=== PATIENT | female | born 1975 | race Caucasian/White ===

== ENCOUNTER → 2020-05-17 | Day surgery (SDC) | payer MEDICARE ==
[2020-05-12 14:37] VITALS: BMI 31.8
[~2020-05-17] MED LIST: LACTATED RINGERS 1,000 ML IV SCH; LIDOCAINE 1% (10MG/ML) FOR IV START INTRADERMA ONE; LIDOCAINE 1% INJ 10MG/ML (20 ML MDV) ONE; PROPOFOL 10 MG/ML 20 ML VIAL IV ONE
[2020-05-17 08:01] VITALS: TEMP 97.8
--- NOTE | 2020-05-17 08:19 | P.GSHP ---
History of Present Illness H&P Date: 05/17/20 Chief Complaint: Anemia Patient here today for upper and lower endoscopy. Patient with anemia. Denies rectal bleeding or melena. No abdominal pain. No weight loss. No family history of colon cancer. Past Medical History Past Medical History: Musculoskeletal Disorder Additional Past Medical History / Comment(s): muscular dystrophy, anemia, born with only one kidney(left) History of Any Multi-Drug Resistant Organisms: None Reported Additional Past Surgical History / Comment(s): paty eye surgery x 3 for astigmatism Past Anesthesia/Blood Transfusion Reactions: No Reported Reaction Past Psychological History: No Psychological Hx Reported Smoking Status: Never smoker Past Alcohol Use History: None Reported Past Drug Use History: None Reported - Past Family History Father Family Medical History: Cancer Additional Family Medical History / Comment(s): lung Medications and Allergies Home Medications Medication Instructions Recorded Confirmed Type Acetaminophen [Tylenol Extra 1,000 mg PO DIRECTED PRN 05/12/20 05/17/20 History Strength] Multivitamins, Thera [Multivitamin 1 tab PO DAILY 05/12/20 05/12/20 History (formulary)] Allergies Allergy/AdvReac Type Severity Reaction Status Date / Time aspirin Allergy Nausea & Verified 05/16/20 14:37 Vomiting & Diarrhea Surgical - Exam Vital Signs Temp Pulse Resp BP Pulse Ox 97.8 F 95 18 126/59 99 05/17/20 07:40 05/17/20 07:40 05/17/20 07:40 05/17/20 07:40 05/17/20 07:40 Physical exam: General: Well-developed, well-nourished HEENT: Normocephalic, sclerae nonicteric Abdomen: Nontender, nondistended Extremities: No edema Neuro: Alert and oriented Assessment and Plan (1) Anemia Narrative/Plan: Will proceed with EGD and colonoscopy. Current Visit: Yes Status: Acute Code(s): D64.9 - ANEMIA, UNSPECIFIED SNOMED Code(s): 065547301
--- NOTE | 2020-05-17 08:42 | P.PCN ---
Date of Procedure: 05/17/20 Procedure(s) Performed: PREOPERATIVE DIAGNOSIS: Anemia POSTOPERATIVE DIAGNOSIS: Minimal gastritis, rectal polyp PROCEDURE: 1. EGD with biopsy 2. Colonoscopy with snare polypectomy ANESTHESIA: MAC SURGEON: Avery Uriarte M.D. SPECIMENS: Antrum, polyp ENDOSCOPIC PROCEDURE: The patient was on the endoscopy table in the left decubitus position. The Olympus gastroscope was inserted into the oropharynx and passed under direct visualization to the region of the third portion of the duodenum. From that point the scope was slowly withdrawn inspecting all surfaces carefully. There were no neoplastic inflammatory or polypoid lesions throughout the duodenum. The pylorus was widely patent. The stomach was carefully inspected. There was minimal gastritis present. A biopsy of the antrum took place to rule out H. pylori. Retroflexion revealed a normal hiatus. The esophagus was then carefully examined. There were no neoplastic inflammatory or polypoid lesions throughout the visualized esophagus. The patient was kept on the endoscopy table in the left decubitus position. The Olympus colonoscope was inserted into the anus and passed under direct visualization to the base of the cecum. The appendiceal orifice was visualized. From that point the scope was slowly withdrawn inspecting all surfaces carefully. There were no neoplastic inflammatory or polypoid lesions throughout the cecum, ascending, transverse, descending, and sigmoid colon. In the rectum a small polyp approximately was noted and removed using the snare with cautery technique. The remainder of the rectum was normal. There was no visible diverticulosis. Digital rectal examination was normal. The patient was taken to the recovery room in stable condition per anesthesia guidelines. RECOMMENDATIONS: Await biopsy results. Continue workup of the patient's anemia.
[2020-05-17 08:48] VITALS: RESP 17
[2020-05-17 08:54] VITALS: BP 121/77; PULSE 103
== END ==
LOC: ORWHC2ENDO 07:12
PROVIDERS: ATTEND Surgery
DX: K29.50 Unspecified chronic gastritis without bleeding (principal); D12.8 Benign neoplasm of rectum; D50.9 Iron deficiency anemia, unspecified; G71.00 Muscular dystrophy, unspecified; K08.89 Other specified disorders of teeth and supporting structures; Q60.0 Renal agenesis, unilateral; Z98.890 Other specified postprocedural states; Z86.69 Personal history of other diseases of the nervous system and sense organs; Z88.6 Allergy status to analgesic agent; Z80.1 Family history of malignant neoplasm of trachea, bronchus and lung
CPT/HCPCS: 81025; 88305; 45385; 43239; J2001; J2704

== ENCOUNTER → 2020-07-21 | Outpatient (CLI) | payer MEDICARE ==
--- NOTE | 2020-07-23 12:01 | CT ---
EXAMINATION TYPE: CT Enterography DATE OF EXAM: 07/21/2020 COMPARISON: None HISTORY: 45-year-old female Abdominal pain and abnormal labs. TECHNIQUE: Contiguous axial scanning of the abdomen and pelvis performed without and with IV Contrast , patient injected with 100ml mL of Isovue 370. Negative oral contrast agent was also administered pe r CT enterography protocol. Postcontrast arterial and portal venous phase imaging was performed. Galilea nal/sagittal reconstructions performed. CT DLP: 1754.6 mGycm Automated exposure control for dose reduction was used. FINDINGS: The heart is normal size without pericardial effusion. Lung bases clear without pleural effusion. Tiny hiatal hernia. No focal liver lesion or biliary ductal dilatation. Portal venous system is patent. Gallbladder, adrenal glands, right kidney, and pancreas appear within normal limits. Spleen is borderline to mildly enlarged at 14.0 cm, sagittal series 10 image 55. A few right mid abdominal mesenteric lymph nodes are borderline enlarged up to 1.0 cm. Otherwise, no mesenteric or retroperitoneal lymphadenopathy. Left kidney is surgically absent. No dilated small bowel or free air. Normal appendix. Mild stool in the right hemicolon. Left side of the colon is relatively collapsed li miting assessment. Additional mild to moderate stool in the rectum. No pericolonic inflammatory givens e seen. There is mild mucosal hyperemia involving the last 10 cm of the terminal ileum with mucosal enhanceme nt on arterial phase imaging equivalent to that of the jejunum, refer to coronal series 12 images 42 through 44. No stricture, surrounding fluid, or abscess is identified. There is severe bulky fibroid enlargement of the uterus filling the pelvis side to side. The uterus m easures up to 13.5 cm x 10.1 cm x 9.8 cm. There is mass effect and edema formation of the endometrial stripe due to multiple large intramural and partially submucosal fibroids. Largest fibroid is primarily intramural along the anterior body measuring up to 7.8 cm but is mass ef fect onto the endometrium. Second largest is along the right uterine fundus measuring 7.0 cm. Multiple underlying fibroids are present. Multicystic appearance to the right kidney measuring 5.2 x 3.9 x 3.6 cm for a volume of 36.5 mL. Exte nsive follicular change/septations are present within. One cystic lesion measuring 1.6 cm within shou lders peripheral enhancement. Trace right cul-de-sac free fluid. Left ovary not clearly seen. Mild circumferential bladder wall thickening. Bones: No osseous destructive process. IMPRESSION: 1. THERE IS MILD NONSPECIFIC INFLAMMATION/ILEITIS OF THE DISTAL 10 CM OF THE TERMINAL ILEUM. NO STRIC TURE OR ABSCESS. 2. ENLARGED, MULTICYSTIC RIGHT OVARY WITH A VOLUME OF 36.5 ML. FEMALE PELVIC MRI CAN FURTHER EVALUATE FOR ANY POTENTIAL UNDERLYING CYSTIC OVARIAN LESION. 3. LARGE BULKY FIBROID UTERUS FILLING THE PELVIS SIDE TO SIDE. LARGEST FIBROIDS MEASURE UP TO 7.8 CM. LARGE INTRAMURAL AND SCATTERED SMALLER SUBMUCOSAL FIBROIDS DISTORT THE UNDERLYING ENDOMETRIUM FROM M ASS EFFECT. FEMALE PELVIC MRI CAN BE CONSIDERED FOR FIBROID MAPPING. CONSIDER SURGICAL EVALUATION. 4. TINY HIATAL HERNIA. MILD SPLENOMEGALY AT 14.0 CM. TRACE RIGHT CUL-DE-SAC FREE FLUID LIKELY PHYSIOL OGIC. LEFT KIDNEY SURGICALLY ABSENT. 5. MILD CIRCUMFERENTIAL BLADDER WALL THICKENING. CORRELATE TO EXCLUDE CYSTITIS.
== END | disposition home or self-care (01) ==
LOC: RADCTMAIN 14:03
PROVIDERS: ATTEND Internal Medicine Hematology & Oncology
DX: D25.1 Intramural leiomyoma of uterus (principal); D25.0 Submucous leiomyoma of uterus; K52.9 Noninfective gastroenteritis and colitis, unspecified; K44.9 Diaphragmatic hernia without obstruction or gangrene; N83.201 Unspecified ovarian cyst, right side; N32.89 Other specified disorders of bladder; R16.1 Splenomegaly, not elsewhere classified; Z88.6 Allergy status to analgesic agent; Z90.5 Acquired absence of kidney
CPT/HCPCS: 74178; Q9967

== ENCOUNTER → 2020-10-04 | Outpatient (CLI) | payer MEDICARE ==
[2020-10-04 11:48] LABS: African American GFR (CKD) >90 (>60 ml/min/1.73 sqM); Anion Gap 8 mmol/L; Blood Urea Nitrogen 18 mg/dL (7-17); Carbon Dioxide 26 mmol/L (22-30); Chloride 106 mmol/L (98-107); Non-African American GFR(CKD) 88 (>60 ml/min/1.73 sqM); Potassium 4.3 mmol/L (3.5-5.1); Sodium 140 mmol/L (137-145)
[2020-10-04 12:00] LABS: Anisocytosis Slight; Basophils % (A) 1 %; Eosinophils # (A) 0.1 k/uL (0-0.7); Eosinophils % (A) 1 %; HCT 42.3 % (34.0-46.0); HGB 13.3 gm/dL (11.4-16.0); Hypochromasia Moderate; Lymphocytes # (A) 1.1 k/uL (1.0-4.8); Lymphocytes % (A) 15 %; MCH 28.1 pg (25.0-35.0); MCHC 31.3 g/dL (31.0-37.0); MCV 89.8 fL (80.0-100.0); Mean Platelet Volume 8.5; Monocytes # (A) 0.4 k/uL (0-1.0); Monocytes % (A) 5 %; Neutrophils # (A) 5.9 k/uL (1.3-7.7); Neutrophils % (A) 78 %; Platelet Count 195 k/uL (150-450); RBC 4.71 m/uL (3.80-5.40); RDW 16.4 % (11.5-15.5); WBC 7.5 k/uL (3.8-10.6)
== END | disposition home or self-care (01) ==
LOC: LABWHC1 10:01
PROVIDERS: ATTEND Obstetrics & Gynecology Obstetrics
DX: Z01.818 Encounter for other preprocedural examination (principal); D25.9 Leiomyoma of uterus, unspecified; N92.0 Excessive and frequent menstruation with regular cycle; N85.2 Hypertrophy of uterus
CPT/HCPCS: 36415; 80051; 82565; 84520; 85025; 86850; 86900; 86901; 87086

== ENCOUNTER 2020-10-10 08:14 | Inpatient (IN) | payer MEDICARE, OTHER ==
[2020-10-06 16:25] VITALS: BMI 31.3
--- NOTE | 2020-10-10 08:39 | P.HPOB ---
History of Present Illness H&P Date: 10/10/20 Chief Complaint: menorrhagia, uterine fibroids, enlarged uterus this is a 45-year-old 0 that presents with known uterine fibroids. Patient had a Scans and subsequent ultrasound revealing an enlarged uterus with multiple fibroids 17 cm x 13 cm x 8 cm. Largest fibroid measuring 7.7 cm anterior nature. Patient is known to have heavy menstrual cycles regular heavy flow and clots. Patient is a known history of muscle dystrophy, with some noted developmental delays. Patient presented to the office with her mom for counseling. Patient has noted anemia secondary to heavy menstrual bleeding. Review of Systems Constitutional: Reports fatigue, Denies chills, Denies fever Ears, nose, mouth and throat: Denies headache Cardiovascular: Denies leg edema Respiratory: Denies dyspnea Gastrointestinal: Denies constipation, Denies diarrhea, Denies nausea, Denies vomiting Genitourinary: Reports menorrhagia Menstruation: Reports period heavy Past Medical History Past Medical History: Musculoskeletal Disorder Additional Past Medical History / Comment(s): muscular dystrophy, anemia, born with only one kidney(left) History of Any Multi-Drug Resistant Organisms: None Reported Additional Past Surgical History / Comment(s): paty eye surgery x 3 for astigmatism, Past Anesthesia/Blood Transfusion Reactions: No Reported Reaction Smoking Status: Never smoker - Past Family History Father Family Medical History: Cancer Additional Family Medical History / Comment(s): lung Medications and Allergies Home Medications Medication Instructions Recorded Confirmed Type Acetaminophen [Tylenol Extra 1,000 mg PO Q6HR PRN 05/12/20 10/07/20 History Strength] Multivitamins, Thera [Multivitamin 1 tab PO DAILY 05/12/20 10/06/20 History (formulary)] Ferrous Sulfate [Feosol] 325 mg PO DAILY 07/22/20 10/06/20 History Allergies Allergy/AdvReac Type Severity Reaction Status Date / Time aspirin Allergy Nausea & Verified 10/06/20 15:45 Vomiting & Diarrhea Exam Osteopathic Statement: *. No significant issues noted on an osteopathic structural exam other than those noted in the History and Physical/Consult. tardive physical exam is performed and state in general this a well-nourished well-developed non female in no acute distress, breathing is noted to be nonlabored, heart has a regular rate and rhythm, on abdominal exam the abdomen is tender with noted enlarged uterus just below the umbilicus on genitourinary exam external genitalia is normal for age no tenderness or implement inflammatory lesions are noted. The vagina has normal pink rugated the cervix is normal in appearance healthy with no lesions no adnexal masses are appreciated although difficult exam secondary to uterine size Assessment and Plan (1) Uterine fibroid Current Visit: Yes Status: Acute Code(s): D25.9 - LEIOMYOMA OF UTERUS, UNSPECIFIED SNOMED Code(s): 76284659 (2) Enlarged uterus Current Visit: Yes Status: Acute Code(s): N85.2 - HYPERTROPHY OF UTERUS SNOMED Code(s): 258901125 (3) Menorrhagia Current Visit: Yes Status: Acute Code(s): N92.0 - EXCESSIVE AND FREQUENT MENSTRUATION WITH REGULAR CYCLE SNOMED Code(s): 876725277 (4) Anemia Current Visit: No Status: Acute Code(s): D64.9 - ANEMIA, UNSPECIFIED SNOMED Code(s): 793628233 Plan: this 45-year-old 0 with known enlarged uterus, uterine fibroids, presents for planned total abdominal hysterectomy with possible diagnostic cystoscopy. Patient has been counseled on surgery and questions have been answered. Risks are reviewed including but not limited to infection, bleeding, damage to bladder, bowel, ureteric injury given the enlarged nature of the uterus. Patient states understanding and wishes to proceed.
[2020-10-10] MEDS ORDERED: ACETAMINOPHEN IV (For NPO) 1,000 MG in EMPTY BAG 1 BAG IVPB STA (08:40)
[2020-10-10] MEDS ORDERED: ONDANSETRON 4 MG/2 ML VIAL IVP PRN (08:40)
[2020-10-10] MEDS ORDERED: Acetaminophen-Codeine 300-30mg TAB PO PRN (08:40)
[2020-10-10] MEDS ORDERED: SIMETHICONE 80 MG CHEWABLE PO PRN (08:40)
[2020-10-10] MEDS ORDERED: LACTATED RINGERS 1,000 ML IV ONE (09:28)
[2020-10-10] MEDS ORDERED: LIDOCAINE 1% (10MG/ML) FOR IV START SQ ONE (09:29)
[2020-10-10] MEDS ORDERED: DEXAMETHASONE SOD PHOSPHATE 4 MG/ML 1 ML VIAL IV ONE (09:38)
[2020-10-10] MEDS ORDERED: ONDANSETRON 4 MG/2 ML VIAL IVP ONE (09:38)
[2020-10-10] MEDS ORDERED: HYDROmorphone (PF) 1 MG/ML ONE (10:34)
[2020-10-10] MEDS ORDERED: NEOSTIGMINE 1 MG/ML 10 ML VIAL ONE (10:34)
[2020-10-10] MEDS ORDERED: MIDAZOLAM 2 MG/2 ML VIAL ONE (10:34)
[2020-10-10] MEDS ORDERED: PROPOFOL 10 MG/ML 20 ML VIAL IV ONE (10:34)
[2020-10-10] MEDS ORDERED: ROCURONIUM 10 MG/ML (10 ML VIAL) IV ONE (10:34)
[2020-10-10] MEDS ORDERED: fentaNYL (PF) 50 MCG/ML 2 ML AMP ONE (10:34)
[2020-10-10] MEDS ORDERED: GLYCOPYRROLATE 0.2 MG/ML 2 ML VIAL ONE (10:34)
[2020-10-10] MEDS ORDERED: LIDOCAINE 1% INJ 10MG/ML (20 ML MDV) ONE (10:34)
[2020-10-10] MEDS ORDERED: diphenhydrAMINE 25 MG CAP PO PRN (13:29)
[2020-10-10] MEDS ORDERED: METOCLOPRAMIDE 5 MG/ML 2 ML VIAL IVP PRN (13:29)
[2020-10-10] MEDS ORDERED: NALOXONE 0.4 MG/ML 1 ML VIAL IV PRN (13:29)
[2020-10-10] MEDS ORDERED: diphenhydrAMINE 50 MG/ML 1 ML VIAL IVP PRN (13:29)
--- NOTE | 2020-10-10 13:29 | P.OP ---
Date of Procedure: 10/10/20 Preoperative Diagnosis: uterine fibroids, enlarged uterus, heavy menstrual bleeding, anemia Postoperative Diagnosis: same Procedure(s) Performed: total abdominal hysterectomy with bilateral salpingectomy Anesthesia: KANDACE Surgeon: Duyen Mccall Medical Policy Specialist #1: Swetha Angelo Estimated Blood Loss (ml): 200 IV fluids (ml): 800 Urine output (ml): 180 Pathology: other (uterus cervix bilateral fallopian tubes) Condition: stable Disposition: PACU Indications for Procedure: this 45-year-old 0 with known enlarged uterus and multiple uterine fibroids presented for evaluation of heavy menstrual bleeding. Patient was noted to have a 17 week size uterus or just fibroid measuring 7 cm anterior nature. Operative Findings: grossly enlarged fibroid uterus bilateral ovaries were noted to be normal. Description of Procedure: patient was seen in the preoperative area where informed consent was obtained. Procedure was reviewed and questions were answered. Patient was taken back to the operating suite where general anesthesia was obtained without difficulty by the anesthesia department. She was then prepped and draped in normal sterile fashion in the dorsal supine position. A Pfannenstiel skin incision was made the scalpel and carried through to the underlying layer fascia. The fascia was then incised in the midline and the incision was extended laterally. The superior aspect of the fascial incision was then grasped deepti clamps, elevated and underlying rectus muscles dissected off sharply. Attention was then turned to the inferior aspect of the fascial incision which was grasped deepti clamps, elevated and underlying rectus muscles dissected off sharply. The rectus muscles were then in the midline the peritoneum was identified and entered. The above-noted findings were visualized the uterus was elevated through the incision the left fallopian tube was grasped and mesosalpinx was crushed with a Evelin clamp and transected and suture ligated, hemostasis was appreciated. The uterine ovarian ligament was then visualized, a window was made through the broad ligament, any clamp was used to transect this pedicle was then suture-ligated, hemostasis was appreciated once again. This was then repeated on the opposite side. The round ligaments were then visualized, starting with the left this was grasped with a Evelin clamp 2 and transected and suture ligated. Hemostasis was appreciated. The bladder flap from the left was then created using sharp and blunt dissection. The right round ligament was clamped 2 transected and suture-ligated hemostasis was appreciated once again. At this time a straight Evelin clamp was used to clamp the ascending branch of the uterine artery this was then transected and tied off. Hemostasis was appreciated. This was then repeated on the opposite side. The bladder was noted to be free of the operating field. An additional straight Evelin clamp was placed on bilateral sides down to the cervix and suture-ligated. at this time the Bovie was then used to transect the uterus off of the cervix, Deepti clamps were used to grasp the cervical stump. sharply curved Heaneys were then placed underneath the cervix, and Frantz scissors were used to transect the cervix. the vaginal cuff was then closed with 0 Vicryl in a running locked fashion. The bladder was noted to be draining clear yellow urine during the entire procedure. The pelvis was then copiously irrigated and hemostasis was appreciated. Both adnexa were appreciated and hemostasis was appreciated. The rectus muscles were then visualized and found to be hemostatic. The fascia was then closed with 0 Vicryl in a running fashion from one lateral edge the midline and the other lateral edge the midline. The subcutaneous tissue was then copiously irrigated hemostasis was appreciated and it was closed with 3-0 Vicryl in a running fashion. The skin was then closed with 4-0 Vicryl in a subcuticular fashion. Steri-Strips and sterile dressings were applied as needed. All counts were correct times to closure of the abdomen.
[2020-10-10] MEDS ORDERED: IBUPROFEN IV 800 MG in SODIUM CHLORIDE 0.9% 250 ML IV ONE (13:30)
[2020-10-10] MEDS: LACTATED RINGERS 1,000 ML IV SCH ×2 (15:09→22:02)
[2020-10-10] MEDS: SENNOSIDES-DOCUSATE SODIUM 1 EACH TAB PO SCH ×2 (15:10→19:54)
[2020-10-10] MEDS ORDERED: ACETAMINOPHEN TAB 325 MG TAB PO PRN (15:40)
[2020-10-10] MEDS: Acetaminophen-Codeine 300-30mg TAB PO PRN (15:41)
[2020-10-11] MEDS: Acetaminophen-Codeine 300-30mg TAB PO PRN ×2 (01:57→06:06)
[2020-10-11 06:41] LABS: Basophils % (A) 0 %; Eosinophils % (A) 0 %; HCT 38.2 % (34.0-46.0); HGB 12.2 gm/dL (11.4-16.0); Hypochromasia Slight; Lymphocytes # (A) 1.6 k/uL (1.0-4.8); Lymphocytes % (A) 14 %; MCH 27.7 pg (25.0-35.0); MCV 86.7 fL (80.0-100.0); Mean Platelet Volume 8.1; Monocytes # (A) 0.7 k/uL (0-1.0); Monocytes % (A) 6 %; Neutrophils % (A) 78 %; Platelet Count 197 k/uL (150-450); RBC 4.41 m/uL (3.80-5.40); WBC 11.6 k/uL (3.8-10.6)
[2020-10-11] MEDS: SENNOSIDES-DOCUSATE SODIUM 1 EACH TAB PO SCH ×2 (08:08→19:32)
--- NOTE | 2020-10-11 08:23 | P.PN ---
Subjective Progress Note Date: 10/11/20 Principal diagnosis: postop day 1, total abdominal hysterectomy with bilateral salpingectomy. patient is doing well postoperatively. She is ambulating and voiding without difficulty. She is tolerating clear liquids without nausea or vomiting. She states her pain is controlled with by mouth medication. Objective - Vital Signs Vital signs: Vital Signs Temp 98.5 F 10/10/20 23:40 Pulse 63 10/10/20 23:40 Resp 18 10/10/20 23:40 BP 115/70 10/10/20 23:40 Pulse Ox 96 10/10/20 23:40 Intake & Output 10/10/20 10/11/20 10/11/20 18:59 06:59 18:59 Intake Total 1150 Output Total 730 5000 Balance 420 -5000 Weight 72.1 kg Intake: IV 1150 Output: Urine 530 5000 Uretheral (Valerio) 2200 Estimated Blood Loss 200 Other: Voiding Method Indwelling Catheter - Constitutional General appearance: Present: average body habitus, cooperative, no acute distress - Respiratory Respiratory: bilateral: CTA - Gastrointestinal Gastrointestinal Comment(s): incision noted to be clean dry and intact General gastrointestinal: Present: normal bowel sounds, soft - Psychiatric Psychiatric: Present: appropriate affect - Labs CBC & Chem 7: 10/11/20 06:25 Labs: Abnormal Lab Results - Last 24 Hours (Table) 10/11/20 Range/Units 06:25 WBC 11.6 H (3.8-10.6) k/uL Neutrophils # 9.0 H (1.3-7.7) k/uL Assessment and Plan (1) Uterine fibroid Current Visit: Yes Status: Acute Code(s): D25.9 - LEIOMYOMA OF UTERUS, UNSPECIFIED SNOMED Code(s): 12205627 (2) Enlarged uterus Current Visit: Yes Status: Acute Code(s): N85.2 - HYPERTROPHY OF UTERUS SNOMED Code(s): 143540064 (3) Menorrhagia Current Visit: Yes Status: Acute Code(s): N92.0 - EXCESSIVE AND FREQUENT MENSTRUATION WITH REGULAR CYCLE SNOMED Code(s): 319760190 (4) Anemia Current Visit: No Status: Acute Code(s): D64.9 - ANEMIA, UNSPECIFIED SNOMED Code(s): 799699175 (5) S/P abdominal hysterectomy Current Visit: Yes Status: Acute Code(s): Z90.710 - ACQUIRED ABSENCE OF BOTH CERVIX AND UTERUS SNOMED Code(s): 665183480 Plan: we will advance diet to regular this morning, encourage increased ambulation and anticipate discharge home tomorrow morning.
[2020-10-11] MEDS: IBUPROFEN 600 MG TAB PO PRN ×2 (11:24→22:13)
[2020-10-11 16:19] VITALS: RESP 16
[2020-10-11] MEDS: LACTATED RINGERS 1,000 ML IV SCH (20:03)
[2020-10-12] MEDS: IBUPROFEN 600 MG TAB PO PRN ×2 (04:01→10:32)
--- NOTE | 2020-10-12 08:32 | P.DS ---
Providers Date of admission: 10/10/20 08:14 Expected date of discharge: 10/12/20 Attending physician: Duyen Mccall Primary care physician: Francis Diaz - Discharge Diagnosis(es) (1) Uterine fibroid Current Visit: Yes Status: Acute (2) Enlarged uterus Current Visit: Yes Status: Acute (3) Menorrhagia Current Visit: Yes Status: Acute (4) Anemia Current Visit: No Status: Acute (5) S/P abdominal hysterectomy Current Visit: Yes Status: Acute Hospital Course: This is a 45-year-old 0 that presented to the hospital total abdominal hysterectomy. Patient has a known history of heavy menstrual bleeding and enlarged uterus with multiple uterine fibroids. Largest uterine fibroid measuring 7 cm. Patient underwent total abdominal hysterectomy with bilateral salpingectomy without difficulty. On this postoperative day #1 patient is feeling well. She is ambulating and voiding without difficulty. She tolerating a regular diet without nausea or vomiting. She states her pain is controlled with Tylenol 3. She denies concerns and is very anxious to be discharged home. Patient Condition at Discharge: Good Plan - Discharge Summary Discharge Rx Participant: No New Discharge Prescriptions: No Action Multivitamins, Thera [Multivitamin (formulary)] 1 tab PO DAILY Acetaminophen [Tylenol Extra Strength] 1,000 mg PO Q6HR PRN PRN Reason: Pain Ferrous Sulfate [Feosol] 325 mg PO DAILY Discharge Medication List Acetaminophen [Tylenol Extra Strength] 1,000 mg PO Q6HR PRN 05/12/20 [History] Multivitamins, Thera [Multivitamin (formulary)] 1 tab PO DAILY 05/12/20 [History] Ferrous Sulfate [Feosol] 325 mg PO DAILY 07/22/20 [History] Follow up Appointment(s)/Referral(s): Duyen Mccall DO [Doctor of Osteopathic Medicine] - 2 Weeks Patient Instructions/Handouts: Hysterectomy (DC), Hysterectomy (GEN) Activity/Diet/Wound Care/Special Instructions: No tub baths until 6 weeks postoperatively. Patient is to keep her incision clean and dry and to call with any concerns of infection. Discharge Disposition: HOME SELF-CARE
[2020-10-12] MEDS: SENNOSIDES-DOCUSATE SODIUM 1 EACH TAB PO SCH (09:09)
[2020-10-12 09:25] VITALS: BP 126/82; PULSE 81; TEMP 98.2
== END 2020-10-12 11:00 | disposition home or self-care (01) | DRG 742 ==
LOC: 2ORMAIN 08:14 → 4FBP 12:25
PROVIDERS: ADMIT Obstetrics & Gynecology Obstetrics; ATTEND Obstetrics & Gynecology Obstetrics
PROC: 0UT90ZZ Resection of Uterus, Open Approach (ICD-10-PCS; principal; 2020-10-10 10:15)
PROC: 0UB70ZZ Excision of Bilateral Fallopian Tubes, Open Approach (ICD-10-PCS; principal; 2020-10-10 10:15)
DX: D25.9 Leiomyoma of uterus, unspecified (principal); Q60.0 Renal agenesis, unilateral; G71.00 Muscular dystrophy, unspecified; N92.0 Excessive and frequent menstruation with regular cycle; D64.9 Anemia, unspecified; N85.2 Hypertrophy of uterus; Z85.118 Personal history of other malignant neoplasm of bronchus and lung
CPT/HCPCS: 85025; 86850; 86900; 86901; 88307

== ENCOUNTER → 2023-03-28 | Outpatient (CLI) | payer MEDICARE, OTHER ==
--- NOTE | 2023-03-29 07:26 | MM ---
Reason for Exam: Screening (asymptomatic). Patient History: Menarche at age 12. Patient has no children. Hysterectomy at age 45. Mother had breast cancer, age 75. Risk Values: Tamika 5 year model risk: 1.7%. NCI Lifetime model risk: 15.7%. Tissue Density: The breast tissue is heterogeneously dense. This may lower the sensitivity of mammography. Findings: Analyzed By CAD. Benign-appearing bilateral axillary lymph nodes. There is no suspicious group of microcalcifications or suspicious mass in either breast. Overall Assessment: Negative, BI-RAD 1 Management: Screening Mammogram of both breasts in 1 year. . Patient should continue monthly self-breast exams. A clinical breast exam by your physician is recommended on an annual basis. This exam should not preclude additional follow-up of suspicious palpable abnormalities. Note on Tamika scores and lifetime risk: 1. A Tamika score greater than 3% is considered moderate risk. If this is the case, consider specialist referral to assess eligibility for a risk reducing agent. 2. If overall lifetime risk for the development of breast cancer is 20% or higher, the patient may qualify for future screening with alternating mammogram and breast MRI. Electronically signed and approved by: Kam Darnell M.D.
== END | disposition home or self-care (01) ==
LOC: RADMAMWWP 09:21
PROVIDERS: ATTEND Family Medicine
DX: Z12.31 Encounter for screening mammogram for malignant neoplasm of breast (principal); Z80.3 Family history of malignant neoplasm of breast
CPT/HCPCS: 77063; 77067

== ENCOUNTER → 2024-03-02 | Outpatient (CLI) | payer MEDICARE, OTHER ==
[2024-03-02 17:17] LABS: % Iron Saturation 35.22 (12.00-45.00); ALT 31 U/L (8-44); AST 26 U/L (13-35); Albumin 4.4 g/dL (3.8-4.9); Albumin/Globulin Ratio 1.57 Ratio (1.60-3.17); Alkaline Phosphatase 118 U/L (41-126); BUN/Creat Ratio 17.62 Ratio (12.00-20.00); Blood Urea Nitrogen 14.1 mg/dL (9.0-27.0); Calcium 9.8 mg/dL (8.7-10.3); Carbon Dioxide 25.6 mmol/L (21.6-31.8); Chloride 103 mmol/L (96-109); Chol/HDL Ratio 3.58 Ratio; Globulin 2.8 g/dL (1.6-3.3); Glucose 96 mg/dL (70-110); Iron 106 UG/DL (50-170); LDL Cholesterol,Calculated 121.1 mg/dL (0.0-131.0); Sodium 139 mmol/L (135-145); Total Bilirubin 0.5 mg/dL (0.3-1.2); Total Iron Binding Capacity 301 UG/DL (228-460); Total Protein 7.2 g/dL (6.2-8.2)
[2024-03-02 17:36] LABS: Basophils # (A) 0.03 X 10*3/uL (0.00-0.10); Basophils % (A) 0.5 %; Eosinophils # (A) 0.07 X 10*3/uL (0.04-0.35); Eosinophils % (A) 1.1 %; HCT 50.3 % (37.2-46.3); HGB 15.9 g/dL (12.0-15.0); Lymphocytes # (A) 1.69 X 10*3/uL (0.90-5.00); Lymphocytes % (A) 26.2 %; MCHC 31.6 g/dL (32.0-37.0); MCV 88.6 FL (80.0-97.0); Mean Platelet Volume 10.5 FL (9.5-12.2); Monocytes # (A) 0.43 X 10*3/uL (0.20-1.00); Monocytes % (A) 6.7 %; NRBC Per 100 WBC 0 X 10*3/uL (0.00-0.01); Neutrophils # (A) 4.22 X 10*3/uL (1.80-7.70); Neutrophils % (A) 65.3 %; Platelet Count 153 X 10*3/uL (140-440); RBC 5.68 X 10*6/uL (4.10-5.20); RDW 14.2 % (11.5-14.5); WBC 6.45 X 10*3/uL (4.50-10.00)
== END | disposition home or self-care (01) ==
LOC: LABWHC1 08:28
PROVIDERS: ATTEND Family Medicine
DX: Z00.00 Encounter for general adult medical examination without abnormal findings (principal); D64.9 Anemia, unspecified
CPT/HCPCS: 36415; 80053; 80061; 82728; 83036; 83540; 83550; 85025

== ENCOUNTER → 2024-03-31 | Outpatient (CLI) | payer MEDICARE, OTHER ==
--- NOTE | 2024-04-02 08:48 | MM ---
Reason for Exam: Screening (asymptomatic). Last screening mammogram was performed 12 month(s) ago. Patient History: Menarche at age 12. Patient has no children. Hysterectomy at age 45. Postmenopausal. Mother had breast cancer, age 75. Risk Values: Tamika 5 year model risk: 1.7%. NCI Lifetime model risk: 15.5%. Prior Study Comparison: 03/28/2023 Bilateral MG 3D screening mammo w/cad, [facility]. Tissue Density: The breasts are heterogeneously dense, which may obscure small masses. Findings: Analyzed By CAD. There is no suspicious group of microcalcifications or new suspicious mass in either breast. Chronic nodularity left breast stable. Overall Assessment: Benign, BI-RAD 2 Management: Screening Mammogram of both breasts in 1 year. . Patient should continue monthly self-breast exams. A clinical breast exam by your physician is recommended on an annual basis. This exam should not preclude additional follow-up of suspicious palpable abnormalities. Note on Tamika scores and lifetime risk: 1. A Tamika score greater than 3% is considered moderate risk. If this is the case, consider specialist referral to assess eligibility for a risk reducing agent. 2. If overall lifetime risk for the development of breast cancer is 20% or higher, the patient may qualify for future screening with alternating mammogram and breast MRI. Electronically signed and approved by: Lewis Reeves M.D. Radiologis
== END | disposition home or self-care (01) ==
LOC: RADMAMWWP 09:22
PROVIDERS: ATTEND Family Medicine
DX: Z12.31 Encounter for screening mammogram for malignant neoplasm of breast (principal); Z78.0 Asymptomatic menopausal state; Z80.3 Family history of malignant neoplasm of breast
CPT/HCPCS: 77063; 77067

== ENCOUNTER → 2025-04-21 | Outpatient (CLI) | payer MEDICARE, OTHER ==
--- NOTE | 2025-04-21 10:08 | MM ---
Reason for Exam: Screening (asymptomatic). Last mammogram was performed 1 year(s) and 1 month(s) ago. Patient History: Menarche at age 12. Patient has no children. Hysterectomy at age 45. Postmenopausal. Mother had breast cancer, age 75. Risk Values: Tamika 5 year model risk: 1.8%. NCI Lifetime model risk: 15.2%. Prior Study Comparison: 03/28/2023 Bilateral MG 3D screening mammo w/cad, [facility]. 03/31/2024 Bilateral MG 3D screening mammo w/cad, [facility]. Tissue Density: There are scattered areas of fibroglandular density. Findings: Analyzed By CAD. Right breast: There is no suspicious group of microcalcifications or new suspicious mass. Left breast: There is no suspicious group of microcalcifications or new suspicious mass. Overall Assessment: Negative, BI-RAD 1 Management: Screening Mammogram of both breasts in [address] [facility] will attempt to contact patient to return for supplemental views and ultrasound if indicated. Patient should continue monthly self-breast exams. A clinical breast exam by your physician is recommended on an annual basis. This exam should not preclude additional follow-up of suspicious palpable abnormalities. Note on Tamika scores and lifetime risk: 1. A Tamika score greater than 3% is considered moderate risk. If this is the case, consider specialist referral to assess eligibility for a risk reducing agent. 2. If overall lifetime risk for the development of breast cancer is 20% or higher, the patient may qualify for future screening with alternating mammogram and breast MRI. [facility], , 04/21/2025 10:05 AM. Electronically signed and approved by: Aristeo Jensen DO
== END | disposition home or self-care (01) ==
LOC: RADMAMWWP 09:14
PROVIDERS: ATTEND Family Medicine
DX: Z12.31 Encounter for screening mammogram for malignant neoplasm of breast (principal); R92.323 Mammographic fibroglandular density, bilateral breasts; Z78.0 Asymptomatic menopausal state; Z80.3 Family history of malignant neoplasm of breast
CPT/HCPCS: 77063; 77067